=== PATIENT | male | born 1950 | race Caucasian/White ===

== ENCOUNTER 2019-03-30 11:22 | Inpatient (IN) | payer MEDICAID, MEDICARE, OTHER ==
[~2019-03-30] VITALS: Ht 182.9 cm; Wt 87.3 kg
[2019-03-30 11:43] LABS: BASOPHILS % (AUTO) 0.2 % (0-1); EOSINOPHILS % (AUTO) 0 % (0-6); HEMATOCRIT 39.7 % (42.0-52.0); HEMOGLOBIN 13.4 g/dl (14.0-17.9); LYMPHOCYTES % (AUTO) 6.2 % (21-51); MEAN CORPUSCULAR HEMOGLOBIN 33.4 PG (27.0-31.0); MEAN CORPUSCULAR HGB CONC 33.9 g/dL (33.0-36.5); MEAN CORPUSCULAR VOLUME 98.6 FL (78-98); MEAN PLATELET VOLUME 8.7 FL (7.4-10.4); MONOCYTES # (AUTO) 0.8 X10'3 (0-0.9); MONOCYTES % (AUTO) 4.9 % (2-12); NEUTROPHILS # (AUTO) 14.8 X10'3 (1.8-7.7); NEUTROPHILS % (AUTO) 88.7 % (42-75); PLATELET COUNT 184 X10'3 (140-440); RED BLOOD COUNT 4.03 X10'6 (4.70-6.10); RED CELL DISTRIBUTION WIDTH 14.8 % (11.5-14.5); WHITE BLOOD COUNT 16.6 X10'3 (4.5-11.0)
[2019-03-30 11:57] LABS: ALANINE AMINOTRANSFERASE 37 U/L (12-78); ALBUMIN 2.3 G/DL (3.4-5.0); ALBUMIN/GLOBULIN RATIO 0.4 (1.1-1.5); ALKALINE PHOSPHATASE 63 IU/L (46-116); ANION GAP 14 (8-16); ASPARTATE AMINO TRANSFERASE 26 U/L (10-37); BILIRUBIN,TOTAL 0.7 MG/DL (0.1-1.0); BLOOD UREA NITROGEN 18 MG/DL (7-18); CALCIUM 8.4 MG/DL (8.5-10.1); CHLORIDE 101 MMOL/L (99-107); GLUCOSE 118 MG/DL (70-104); SODIUM 133 MMOL/L (135-145); TOTAL CARBON DIOXIDE 18.3 MMOL/L (24-32); TOTAL PROTEIN 7.6 G/DL (6.4-8.2); eGFR 47 ML/MIN
[2019-03-30 12:07] LABS: POTASSIUM 2.7 MMOL/L (3.5-5.1)
[2019-03-30] MEDS ORDERED: mag hydrox/Alum hydrox/simeth 30ml oral suspension PO PRN (12:35)
[2019-03-30] MEDS ORDERED: ondansetron/PF 4mg/2ml inj IV PRN (12:35)
[2019-03-30] MEDS ORDERED: acetaminophen 325mg tablet PO PRN (12:35)
[2019-03-30] MEDS ORDERED: magnesium hydroxide 30ml (MOM) UD suspension PO PRN (12:35)
[2019-03-30] MEDS ORDERED: NO HOME MEDS (12:36)
[2019-03-30] MEDS: normal saline 1000ml 1,000 ML IV SCH ×2 (12:53→22:35)
--- NOTE | 2019-03-30 14:43 | NUR ---
Awaiting patient arrival to [facility] 3015I.
--- NOTE | 2019-03-30 14:43 | NUR ---
Paged Dr. Shea: PAGER ID: [phone] MESSAGE: RE: [place], Chai [phone]. New admit. Patient has critical potassium of 2.7. No replacement protocol ordered. Thank you. Mayte [id number]
[2019-03-30] MEDS ORDERED: potassium CL 10mEq/100ml bag 100 ML IV PRN (14:45)
[2019-03-30] MEDS ORDERED: magnesium 4gm in 100ml NS 100 ML IV PRN (14:45)
[2019-03-30] MEDS ORDERED: potassium Cl 20 mEq SR tablet PO PRN (14:45)
[2019-03-30] MEDS ORDERED: magnesium Cl slow-release 64mg tablet PO PRN (14:45)
--- NOTE | 2019-03-30 14:50 | NUR ---
Patient arrived to room 3017B. Arrived via gurney from ED. Used slideboard to transfer patient from gurney to the bed. MD present at bedside. Vitals at arrival are temp 97.5, HR 96, RR 20, 91% on room air, BP 125/73 on left arm, and no pain. Bed locked and lowered. Patient started on telemetry monitoring. Patient oriented to room and call light.
[2019-03-30 15:00] VITALS: BP 125/73
[2019-03-30] MEDS ORDERED: carVEDilol 3.125mg tablet PO SCH (15:00)
[2019-03-30] MEDS ORDERED: carVEDilol 3.125mg tablet PO ONE (15:00)
[2019-03-30] MEDS ORDERED: aspirin 325mg tablet PO ONE (15:00)
[2019-03-30] MEDS: potassium Cl 20 mEq SR tablet PO PRN ×2 (15:16→23:58)
--- NOTE | 2019-03-30 16:54 | NUR ---
Paged Dr. Shea regarding a pain medication for patient. PAGER ID: [phone] MESSAGE: Ki. [phone]. [place]. Patient unable to raise left arm and complains of 10/10 pain. Patient was recently seen at [facility] for left arm. would you like to order pain medication? Thank you. Mya ROBB x [phone]
[2019-03-30] MEDS ORDERED: metoprolol tartrate 1mg/ml inj IV PRN (17:35)
[2019-03-30] MEDS ORDERED: aminophylline 250mg/10ml inj. IV PRN (17:35)
[2019-03-30] MEDS ORDERED: regadenoson 0.4mg/5ml syringe IV PRN (17:35)
[2019-03-30] MEDS ORDERED: nitroGLYCERIN 0.4mg SUBLingual tab SL PRN (17:35)
--- NOTE | 2019-03-30 18:17 | NUR ---
Problems reprioritized. Patient report given, questions answered & plan of care reviewed with CLARISSE Simental.
--- NOTE | 2019-03-30 18:25 | NUR ---
Problems reprioritized. Patient report given, questions answered & plan of care reviewed with Kamille RN. Patient stable at transfer of care.
--- NOTE | 2019-03-30 18:31 | NUR ---
Patient in room PCU 3017. I have received report from Mayte Lobo RN and Mya Nowak RN and had the opportunity to ask questions and assume patient care.
[2019-03-30 19:00] VITALS: BP 106/69
[2019-03-30] MEDS ORDERED: enoxaparin 30mg/0.3ml syringe SUBCUT SCH (20:00)
[2019-03-30] MEDS ORDERED: enoxaparin 60mg/0.6ml syringe SUBCUT SCH (20:00)
[2019-03-30] MEDS: carVEDilol 3.125mg tablet PO SCH (20:38)
[2019-03-30] MEDS: HYDROcodone/acetaminophen 5mg/325mg tablet PO PRN (20:38)
[2019-03-30] MEDS: heparin, porcine 5000 units/ml vial SQ SCH (20:42)
[2019-03-30 22:00] VITALS: BP 99/58
[2019-03-31] VITALS (14 sets, daily range): BP systolic 102–133; BP diastolic 58–83
[2019-03-31] MEDS ORDERED: FLU VACC QS 2019-20 (6 MOS UP) 60 MCG/0.5 ML VIAL IMVAC ONE ×2 (01:00→10:00)
[2019-03-31] MEDS ORDERED: pneumococcal 23-VAL P-sac vacc 25 mcg/0.5ml vial IMVAC ONE ×2 (01:00→10:00)
[2019-03-31] MEDS: potassium Cl 20 mEq SR tablet PO PRN (05:01)
[2019-03-31 05:06] LABS: BASOPHILS % (AUTO) 0.2 % (0-1); HEMOGLOBIN 12.5 g/dl (14.0-17.9); LYMPHOCYTES # (AUTO) 1.6 X10'3 (1.1-4.8); MEAN CORPUSCULAR HEMOGLOBIN 33.2 PG (27.0-31.0); MEAN PLATELET VOLUME 9.4 FL (7.4-10.4); MONOCYTES # (AUTO) 1.6 X10'3 (0-0.9); MONOCYTES % (AUTO) 8.5 % (2-12)
[2019-03-31 05:08] LABS: EOSINOPHILS % (AUTO) 0.1 % (0-6); HEMATOCRIT 36.9 % (42.0-52.0); LYMPHOCYTES % (AUTO) 8.3 % (21-51); MEAN CORPUSCULAR HGB CONC 33.8 g/dL (33.0-36.5); MEAN CORPUSCULAR VOLUME 98.3 FL (78-98); NEUTROPHILS # (AUTO) 15.9 X10'3 (1.8-7.7); NEUTROPHILS % (AUTO) 82.9 % (42-75); PLATELET COUNT 202 X10'3 (140-440); RED BLOOD COUNT 3.75 X10'6 (4.70-6.10); RED CELL DISTRIBUTION WIDTH 14.5 % (11.5-14.5); WHITE BLOOD COUNT 19.2 X10'3 (4.5-11.0)
[2019-03-31 05:21] LABS: ANION GAP 8 (8-16); BLOOD UREA NITROGEN 15 MG/DL (7-18); BUN/CREATININE RATIO 15.2 (5.4-32.0); CALCIUM 8.2 MG/DL (8.5-10.1); CHLORIDE 103 MMOL/L (99-107); CREATININE 0.99 MG/DL (0.60-1.10); GLUCOSE 117 MG/DL (70-104); POTASSIUM 3.7 MMOL/L (3.5-5.1); SODIUM 133 MMOL/L (135-145); TOTAL CARBON DIOXIDE 21.6 MMOL/L (24-32); eGFR 76 ML/MIN
--- NOTE | 2019-03-31 06:20 | NUR ---
Problems reprioritized. Patient report given, questions answered & plan of care reviewed with CLARISSE Barclay.
--- NOTE | 2019-03-31 06:20 | NUR ---
Patient in room PCU 3017. I have received report from Kamille ROBB and had the opportunity to ask questions and assume patient care.
[2019-03-31] MEDS: normal saline 1000ml 1,000 ML IV SCH ×2 (08:12→19:22)
[2019-03-31] MEDS: aspirin 325mg tablet, delayed-release (Ecotrin) PO SCH (08:19)
[2019-03-31] MEDS: atorvastatin 20mg tablet PO SCH (08:19)
[2019-03-31] MEDS: heparin, porcine 5000 units/ml vial SQ SCH ×2 (08:19→20:00)
[2019-03-31 09:27] LABS: PLATELET ESTIMATE NORMAL; TOTAL CELLS COUNTED 100
[2019-03-31 09:29] LABS: BURR CELLS 1+
[2019-03-31 09:36] LABS: TOXIC GRANULATION 1+; TOXIC VACUOLATION FEW
[2019-03-31 09:45] LABS: NUCLEATED RED BLOOD CELLS 2 /100WBC (0-0)
[2019-03-31] MEDS ORDERED: DOXYCYCLINE 100MG CAPSULE PO STA (11:50)
[2019-03-31] MEDS: CefTRIAXone 2gm/D5W 50ml 50 ML IV SCH (12:16)
[2019-03-31] MEDS: carVEDilol 3.125mg tablet PO SCH ×2 (12:19→19:19)
--- NOTE | 2019-03-31 12:50 | NUR ---
Problems reprioritized. Patient report given, questions answered & plan of care reviewed with Susana ROBB.
--- NOTE | 2019-03-31 12:55 | NUR ---
Patient in room PCU 3017. I have received report from CLARISSE Barclay and had the opportunity to ask questions and assume patient care.
--- NOTE | 2019-03-31 13:30 | NUR ---
PAGER ID: [phone] MESSAGE: [phone] Chai Delarosa: Lexiscan results in, Normal Lexiscan cardiac rest and stress test, Can we start feeding pt? Thanks Domo [phone]
[2019-03-31] MEDS: DOXYCYCLINE 100MG CAPSULE PO SCH (17:50)
[2019-03-31] MEDS: HYDROcodone/acetaminophen 5mg/325mg tablet PO PRN (17:52)
--- NOTE | 2019-03-31 18:25 | NUR ---
Problems reprioritized. Patient report given, questions answered & plan of care reviewed with CLARISSE Isaac. Patient stable at shift change
[2019-03-31] MEDS: lactobacillus rhamnosus 10,000 MMU CELLS/CAPSULE PO SCH (19:19)
[2019-04-01 02:00] VITALS: BP 11/79
[2019-04-01 05:17] LABS: ALBUMIN 1.8 G/DL (3.4-5.0); ANION GAP 6 (8-16); BLOOD UREA NITROGEN 12 MG/DL (7-18); CALCIUM 8.1 MG/DL (8.5-10.1); CHLORIDE 106 MMOL/L (99-107); CREATININE 0.86 MG/DL (0.60-1.10); GLUCOSE 99 MG/DL (70-104); POTASSIUM 3.5 MMOL/L (3.5-5.1); SODIUM 135 MMOL/L (135-145); TOTAL CARBON DIOXIDE 22.6 MMOL/L (24-32); eGFR 89 ML/MIN
[2019-04-01 05:18] LABS: EOSINOPHILS # (AUTO) 0.2 X10'3 (0-0.9); HEMOGLOBIN 11.9 g/dl (14.0-17.9); MEAN CORPUSCULAR HEMOGLOBIN 33.4 PG (27.0-31.0); MONOCYTES # (AUTO) 1.1 X10'3 (0-0.9); RED BLOOD COUNT 3.56 X10'6 (4.70-6.10); RED CELL DISTRIBUTION WIDTH 14.5 % (11.5-14.5)
[2019-04-01] MEDS: normal saline 1000ml 1,000 ML IV SCH ×2 (05:20→14:33)
[2019-04-01 05:22] LABS: BASOPHILS # (AUTO) 0.1 X10'3 (0-0.2); BASOPHILS % (AUTO) 0.6 % (0-1); HEMATOCRIT 34.4 % (42.0-52.0); LYMPHOCYTES # (AUTO) 2.3 X10'3 (1.1-4.8); LYMPHOCYTES % (AUTO) 15.5 % (21-51); MEAN CORPUSCULAR HGB CONC 34.5 g/dL (33.0-36.5); MEAN CORPUSCULAR VOLUME 96.6 FL (78-98); MEAN PLATELET VOLUME 8.9 FL (7.4-10.4); MONOCYTES % (AUTO) 7.5 % (2-12); NEUTROPHILS # (AUTO) 11.2 X10'3 (1.8-7.7); NEUTROPHILS % (AUTO) 75.4 % (42-75); PLATELET COUNT 212 X10'3 (140-440); WHITE BLOOD COUNT 14.8 X10'3 (4.5-11.0)
[2019-04-01 06:00] VITALS: BP 130/80
--- NOTE | 2019-04-01 06:15 | NUR ---
Patient in room PCU 3017. I have received report from Kamille ROBB and had the opportunity to ask questions and assume patient care.
--- NOTE | 2019-04-01 06:33 | NUR ---
Problems reprioritized. Patient report given, questions answered & plan of care reviewed with CLARISSE Barclay.
[2019-04-01] MEDS: carVEDilol 3.125mg tablet PO SCH ×2 (08:16→20:24)
[2019-04-01] MEDS: aspirin 325mg tablet, delayed-release (Ecotrin) PO SCH (08:16)
[2019-04-01] MEDS: CefTRIAXone 2gm/D5W 50ml 50 ML IV SCH (08:16)
[2019-04-01] MEDS: atorvastatin 20mg tablet PO SCH (08:16)
[2019-04-01] MEDS: lactobacillus rhamnosus 10,000 MMU CELLS/CAPSULE PO SCH ×2 (08:16→20:24)
[2019-04-01] MEDS: DOXYCYCLINE 100MG CAPSULE PO SCH ×2 (08:16→17:44)
[2019-04-01] MEDS: heparin, porcine 5000 units/ml vial SQ SCH ×2 (08:17→20:23)
[2019-04-01 11:00] VITALS: BP 118/73
[2019-04-01 15:00] VITALS: BP 126/81
[2019-04-01] MEDS: HYDROcodone/acetaminophen 5mg/325mg tablet PO PRN (17:44)
[2019-04-01 18:00] VITALS: BP 129/78
--- NOTE | 2019-04-01 18:20 | NUR ---
Problems reprioritized. Patient report given, questions answered & plan of care reviewed with Marjan ROBB.
--- NOTE | 2019-04-01 18:32 | NUR ---
Patient in room PCU 3017. I have received report from CLARISSE Barclay and had the opportunity to ask questions and assume patient care.
[2019-04-01 22:00] VITALS: BP 125/82
[2019-04-02] MEDS: normal saline 1000ml 1,000 ML IV SCH ×2 (02:50→10:33)
[2019-04-02 03:00] VITALS: BP 134/81
[2019-04-02 05:33] LABS: ANION GAP 6 (8-16); BLOOD UREA NITROGEN 13 MG/DL (7-18); BUN/CREATININE RATIO 15.3 (5.4-32.0); CALCIUM 8.6 MG/DL (8.5-10.1); CHLORIDE 106 MMOL/L (99-107); CREATININE 0.85 MG/DL (0.60-1.10); GLUCOSE 96 MG/DL (70-104); POTASSIUM 3.4 MMOL/L (3.5-5.1); SODIUM 135 MMOL/L (135-145); TOTAL CARBON DIOXIDE 23.1 MMOL/L (24-32); eGFR 90 ML/MIN
[2019-04-02 05:36] LABS: BASOPHILS # (AUTO) 0.1 X10'3 (0-0.2); BASOPHILS % (AUTO) 0.7 % (0-1); EOSINOPHILS # (AUTO) 0.2 X10'3 (0-0.9); LYMPHOCYTES # (AUTO) 1.8 X10'3 (1.1-4.8); MONOCYTES # (AUTO) 0.8 X10'3 (0-0.9)
[2019-04-02 05:39] LABS: HEMATOCRIT 35.8 % (42.0-52.0); HEMOGLOBIN 12.3 g/dl (14.0-17.9); LYMPHOCYTES % (AUTO) 20.7 % (21-51); MEAN CORPUSCULAR HEMOGLOBIN 33.6 PG (27.0-31.0); MEAN CORPUSCULAR HGB CONC 34.4 g/dL (33.0-36.5); MEAN CORPUSCULAR VOLUME 97.5 FL (78-98); MEAN PLATELET VOLUME 8.8 FL (7.4-10.4); NEUTROPHILS % (AUTO) 67.6 % (42-75); PLATELET COUNT 220 X10'3 (140-440); RED BLOOD COUNT 3.67 X10'6 (4.70-6.10); RED CELL DISTRIBUTION WIDTH 14.8 % (11.5-14.5); WHITE BLOOD COUNT 8.8 X10'3 (4.5-11.0)
[2019-04-02 06:00] VITALS: BP 126/80
--- NOTE | 2019-04-02 06:28 | NUR ---
Problems reprioritized. Patient report given, questions answered & plan of care reviewed with CLARISSE Chen.
--- NOTE | 2019-04-02 06:30 | NUR ---
Patient in room PCU 3017. I have received report from Marjan ROBB ,and had the opportunity to ask questions and assume patient care.
[2019-04-02 07:38] LABS: PLATELET ESTIMATE NORMAL; TOTAL CELLS COUNTED 100
[2019-04-02 07:39] LABS: ANISOCYTOSIS 1+
[2019-04-02] MEDS: aspirin 325mg tablet, delayed-release (Ecotrin) PO SCH (07:45)
[2019-04-02] MEDS: lactobacillus rhamnosus 10,000 MMU CELLS/CAPSULE PO SCH (07:45)
[2019-04-02] MEDS: CefTRIAXone 2gm/D5W 50ml 50 ML IV SCH (07:45)
[2019-04-02] MEDS: atorvastatin 20mg tablet PO SCH (07:45)
[2019-04-02] MEDS: carVEDilol 3.125mg tablet PO SCH (07:45)
[2019-04-02] MEDS: DOXYCYCLINE 100MG CAPSULE PO SCH (07:45)
[2019-04-02] MEDS: heparin, porcine 5000 units/ml vial SQ SCH (07:46)
[2019-04-02 11:00] VITALS: BP 107/54
[2019-04-02] MEDS ORDERED: ASPI-845 PO (11:35)
[2019-04-02] MEDS ORDERED: COR3.125T PO (11:35)
[2019-04-02] MEDS ORDERED: LEVO750T21 PO (11:35)
--- NOTE | 2019-04-02 13:30 | NUR ---
Discharge Note: Pt. is Stable for discharge and has all of his belongings. He will sampler pickup his new medications at [facility] later today. [place] blocks from [place] hospital and is feeling like walking despite nursing offers to call him a Cab. Instrcutions are understood and pt. will find a medical provider.
== END 2019-04-02 13:05 | disposition home or self-care (01) | DRG 871 ==
LOC: ER 11:25 → ED HOLD 13:13 → PCU 3S 14:48 → OBSVTOIN 03-31 11:00
PROVIDERS: ADMIT Family Medicine; ATTEND Family Medicine
PROC: 3E0234Z Introduction of Serum, Toxoid and Vaccine into Muscle, Percutaneous Approach (ICD-10-PCS; principal; 2019-03-31)
PROC: 3E02340 Introduction of Influenza Vaccine into Muscle, Percutaneous Approach (ICD-10-PCS; 2019-03-31)
PROC: 4A02XM4 Measurement of Cardiac Total Activity, External Approach (ICD-10-PCS; 2019-03-31)
PROC: 3E033HZ Introduction of Radioactive Substance into Peripheral Vein, Percutaneous Approach (ICD-10-PCS; 2019-03-31)
DX: A41.9 Sepsis, unspecified organism (principal); I21.A1 Myocardial infarction type 2; J18.9 Pneumonia, unspecified organism; N17.0 Acute kidney failure with tubular necrosis; E87.1 Hypo-osmolality and hyponatremia; E87.6 Hypokalemia; I95.9 Hypotension, unspecified; I48.0 Paroxysmal atrial fibrillation; Z23 Encounter for immunization
CPT/HCPCS: 36415; 71045; 78452; 80048; 80053; 83735; 84484; 85025; 87040; 87081; 90732; 93005; 93017; 93306; 96374; 99291; A9500; G0378; J0280; J0696; J1644; J2405; J2785; J7030; Q2037

== ENCOUNTER 2021-09-24 13:43 | Emergency (ER) | payer OTHER, MEDICARE, MEDICAID ==
[~2021-09-24] VITALS: Ht 182.9 cm; Wt 90.9 kg
[~2021-09-24 13:43] MED LIST: ASPI-845 PO; COR3.125T PO
[2021-09-24 14:22] LABS: BASOPHILS % (AUTO) 0.2 % (0-1); EOSINOPHILS % (AUTO) 0.6 % (0-6); HEMATOCRIT 41.3 % (42.0-52.0); HEMOGLOBIN 13.8 g/dl (14.0-17.9); LYMPHOCYTES # (AUTO) 0.7 X10'3 (1.1-4.8); LYMPHOCYTES % (AUTO) 14.6 % (21-51); MEAN CORPUSCULAR HEMOGLOBIN 32.5 PG (27.0-31.0); MEAN CORPUSCULAR HGB CONC 33.4 g/dL (33.0-36.5); MEAN CORPUSCULAR VOLUME 97.2 FL (78-98); MEAN PLATELET VOLUME 8.6 FL (7.4-10.4); MONOCYTES % (AUTO) 0.5 % (2-12); NEUTROPHILS # (AUTO) 4.1 X10'3 (1.8-7.7); NEUTROPHILS % (AUTO) 84.1 % (42-75); PLATELET COUNT 136 X10'3 (140-440); RED BLOOD COUNT 4.25 X10'6 (4.70-6.10); RED CELL DISTRIBUTION WIDTH 15.5 % (11.5-14.5); WHITE BLOOD COUNT 4.8 X10'3 (4.5-11.0)
[2021-09-24 14:32] LABS: ALANINE AMINOTRANSFERASE 91 U/L (12-78); ALBUMIN 2.8 G/DL (3.4-5.0); ALBUMIN/GLOBULIN RATIO 0.5 (1.1-1.5); ALKALINE PHOSPHATASE 215 IU/L (46-116); ANION GAP 13 (8-16); ASPARTATE AMINO TRANSFERASE 78 U/L (10-37); BILIRUBIN,TOTAL 0.7 MG/DL (0.1-1.0); BLOOD UREA NITROGEN 18 MG/DL (7-18); BUN/CREATININE RATIO 12.2 (5.4-32.0); CALCIUM 8.9 MG/DL (8.5-10.1); CHLORIDE 103 MMOL/L (99-107); CREATININE 1.47 MG/DL (0.60-1.10); GLUCOSE 125 MG/DL (70-104); LIPASE 63 U/L (73-393); SODIUM 137 MMOL/L (135-145); TOTAL CARBON DIOXIDE 21.1 MMOL/L (24-32); TOTAL PROTEIN 7.9 G/DL (6.4-8.2); eGFR 47 ML/MIN
[2021-09-24 14:51] LABS: POTASSIUM 2.9 MMOL/L (3.5-5.1)
[2021-09-24] MEDS ORDERED: POTASSIUM BICARB 20meq eff tab 20 MEQ TABLET.EFF PO ONE (16:10)
[2021-09-24 16:14] LABS: CLARITY,URINE CLOUDY (Clear); COLOR,URINE YELLOW (Yellow); GLUCOSE, URINE NEGATIVE (Neg); KETONES,URINE TRACE mg/dl (Neg); LEUKOCYTE ESTERASE ,URINE LARGE (Neg); NITRITES, URINE POSITIVE (Neg); OCCULT BLOOD,URINE LARGE (Neg); PROTEIN,URINE TRACE mg/dl (Neg)
[2021-09-24 16:24] LABS: UA COLLECTION TYPE VOIDED
[2021-09-24 16:26] LABS: BACTERIA,URINE 4+ /HPF (Neg); SQUAMOUS EPITHELIAL CELL,UR FEW /LPF (FEW); WBC CLUMPS,URINE MODERATE /HPF (NEGATIVE); WBC,URINE TNTC /HPF (0-4)
[2021-09-24] MEDS ORDERED: cephalexin 500mg capsule PO ONE (17:15)
[2021-09-24] MEDS ORDERED: CEPH-585 PO (17:16)
[2021-09-24] MEDS ORDERED: HYDROcodone/acetaminophen 10/325mg tab PO ONE (17:35)
[2021-09-24 17:39] VITALS: BP 107/57
== END 2021-09-24 17:59 | disposition home or self-care (01) ==
LOC: ER 13:43
DX: N39.0 Urinary tract infection, site not specified (principal); R31.9 Hematuria, unspecified; Z87.442 Personal history of urinary calculi; Z79.899 Other long term (current) drug therapy
CPT/HCPCS: 36415; 80053; 81001; 83690; 85025; 87088; 99283

== ENCOUNTER 2022-02-23 20:19 | Emergency (ER) | payer OTHER, MEDICARE, MEDICAID ==
[~2022-02-23] VITALS: Ht 182.9 cm; Wt 90.9 kg
[~2022-02-23 20:19] MED LIST changes: +CEPH-585 PO
[2022-02-23] MEDS ORDERED: ketorolac trometh inj. 60 MG/2 ML VIAL IM ONE (22:10)
[2022-02-23] MEDS ORDERED: CYCL-1 PO (22:16)
[2022-02-23] MEDS ORDERED: HYDR-3965 PO (22:16)
[2022-02-23 22:34] VITALS: BP 135/75
== END 2022-02-23 22:36 | disposition home or self-care (01) ==
LOC: ER 20:20
DX: M54.2 Cervicalgia (principal); I48.91 Unspecified atrial fibrillation; Z87.01 Personal history of pneumonia (recurrent); Z87.442 Personal history of urinary calculi; Z72.89 Other problems related to lifestyle; Z79.82 Long term (current) use of aspirin; Z79.2 Long term (current) use of antibiotics; Z79.899 Other long term (current) drug therapy; W11.XXXA Fall on and from ladder, initial encounter; Y93.89 Activity, other specified; Y92.89 Other specified places as the place of occurrence of the external cause; Y99.8 Other external cause status
CPT/HCPCS: 20552; 70450; 72125; 96372; 99284; J1885

== ENCOUNTER 2022-06-08 07:58 | Emergency (ER) | payer OTHER, MEDICARE, MEDICAID ==
[~2022-06-08] VITALS: Ht 182.9 cm; Wt 86.4 kg
[~2022-06-08 07:58] MED LIST changes: +CYCL-1 PO
[2022-06-08 07:59] VITALS: BP 139/79
[2022-06-08] MEDS ORDERED: ibuprofen tablet 400 MG TABLET PO ONE (10:00)
[2022-06-08] MEDS ORDERED: ondansetron 4mg rapidly disintigrating tab PO ONE (10:00)
--- NOTE | 2022-06-08 10:58 | NUR ---
pt given crackers and water for PO challenge
[2022-06-08] MEDS ORDERED: ONDA4TAB12 PO (12:13)
[2022-06-08] MEDS ORDERED: ACET-890 PO (12:13)
== END 2022-06-08 12:37 | disposition home or self-care (01) ==
LOC: ER 07:58
DX: B34.9 Viral infection, unspecified (principal); R05.9 Cough, unspecified; Z20.822 Contact with and (suspected) exposure to COVID-19; R51.9 Headache, unspecified; R09.89 Other specified symptoms and signs involving the circulatory and respiratory systems; F17.200 Nicotine dependence, unspecified, uncomplicated; Z87.442 Personal history of urinary calculi; Z72.89 Other problems related to lifestyle; Z56.0 Unemployment, unspecified; Z59.00 Homelessness unspecified; Z79.82 Long term (current) use of aspirin; Z79.899 Other long term (current) drug therapy
CPT/HCPCS: 87502; 87503; 87635; 99283; C9803